=== PATIENT | female | born 1965 | race Caucasian/White ===

== ENCOUNTER 2017-05-09 13:31 | Day surgery (SDC) | payer OTHER ==
[~2017-05-09] VITALS: Ht 167.6 cm; Wt 78.9 kg
[2017-05-09 15:44] VITALS: BP 116/60
== END 2017-05-09 16:15 | disposition home or self-care (01) | DRG 951 ==
LOC: ENDO 13:31
PROVIDERS: ATTEND Internal Medicine Gastroenterology
PROC: 0DBP8ZX Excision of Rectum, Via Natural or Artificial Opening Endoscopic, Diagnostic (ICD-10-PCS; principal; 2017-05-09)
PROC: 3E0H8KZ Introduction of Other Diagnostic Substance into Lower GI, Via Natural or Artificial Opening Endoscopic (ICD-10-PCS; 2017-05-09)
DX: Z12.11 Encounter for screening for malignant neoplasm of colon (principal); D12.8 Benign neoplasm of rectum; K64.4 Residual hemorrhoidal skin tags